=== PATIENT | female | born 1960 | race Two or more races ===

== ENCOUNTER 2023-04-19 11:02 | Emergency (ER) | payer OTHER ==
[~2023-04-19] VITALS: Ht 152.4 cm; Wt 63.5 kg
[2023-04-19] MEDS ORDERED: PEPCID20 MG PO (11:11)
[2023-04-19] MEDS ORDERED: KETO10TA2 PO (11:11)
[2023-04-19 13:14] LABS: PH,URINE 8.5; URINE BLOOD LARGE; URINE GLUCOSE NEGATIVE (NEGATIVE); URINE LEUKOCYTE MODERATE; URINE NITRATE POSITIVE
[2023-04-19 13:22] LABS: HEMATOCRIT 43.2 % (36.0-45.00); HEMOGLOBIN 15.3 g/dL (12.0-15.00); MEAN CELL VOLUME 93.6 fL (80.00-100.00); MEAN CORPUSCULAR HEMOGLOBIN 33.2 pg (27.00-32.0); MEAN CORPUSCULAR HGB CONC 35.4 g/dl (32.0-36.0); PLATELET COUNT 296 K/uL (150-450); RED BLOOD COUNT 4.62 M/uL (4.00-6.00); RED CELL DISTRIBUTION WIDTH 12.6 % (11.5-14.5)
[2023-04-19 13:50] LABS: URINE APPEARANCE BLOODY; URINE BILIRRUBIN MODERATE (NEGATIVE); URINE COLOR RED; URINE PROTEIN >=300 (NEGATIVE); URINE RBC LOADED /HPF; URINE WBC 13-20 /hpf
[2023-04-19 13:51] LABS: URINE EPITHELIAL CELLS 0-4 /HPF
[2023-04-19 13:54] LABS: URINE BACTERIA MODERATE
[2023-04-19 14:38] LABS: ALBUMIN 4.1 gm/dL (3.4-5.0); BILIRUBIN TOTAL 0.55 mg/dL (0.3-1.2); CALCIUM 9.7 mg/dL (8.5-10.1); CREATININE SERUM 0.74 mg/dL (0.55-1.02); GFR 80.05; GLOBULINA 3.8 G/DL (2.4-3.5); POTASSIUM 3.97 mEq/L (3.5-5.1); TOTAL PROTEIN 7.9 gm/dL (6.4-8.2)
== END 2023-04-19 19:26 | disposition home or self-care (01) ==
LOC: ER 11:03
PROVIDERS: Emergency Medicine
DX: N39.0 Urinary tract infection, site not specified (principal); N20.9 Urinary calculus, unspecified; R10.9 Unspecified abdominal pain; Z88.5 Allergy status to narcotic agent